=== PATIENT | female | born 2000 | race Caucasian/White ===

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

== ENCOUNTER 2021-07-05 10:34 | Emergency (ER) | payer OTHER, SELFPAY ==
[2021-07-05 10:48] VITALS: BP 121/67; PULSE 97; RESP 18; TEMP 37.2; O2SAT 99
--- NOTE | 2021-07-05 11:40 | ED.EAR ---
HPI - Ear Problem General Chief complaint: Ear Stated complaint: Bilateral Ear Pain Time Seen by Provider: 07/05/21 11:35 Source: patient and RN notes reviewed Mode of arrival: ambulatory Limitations: no limitations History of Present Illness HPI Narrative: 20-year-old female presents to [facility] with complaints of bilateral ear pain which actually woke her up last night with muffled hearing with Left > right. Patient does admit also to some sinus drainage and some sore throat with cough,denies any fevers chills or sweats or body aches. Patient has had flu vaccine but has not had any Covid vaccinations states she did take a home Covid test this morning which was negative. MD Complaint: ear pain and other (sinus drainage and sore throat) Location: bilateral Related Data Allergies Allergy/AdvReac Type Severity Reaction Status Date / Time No Known Allergies Allergy Verified 07/05/21 11:20 Review of Systems Review of Systems: CONSTITUTIONAL: Denies fever, chills, or sweats. EYES: Denies visual changes, redness, or discharge. ENT: Positive for rhinorrhea, congestion, sore throat, or otalgia. CARDIOVASCULAR: Denies chest pain, palpitations, or edema. RESPIRATORY:Positive for cough no dyspnea. GASTROINTESTINAL: Denies abdominal pain, nausea, vomiting, or diarrhea. GENITOURINARY: Denies dysuria or hematuria. SKIN: Denies rash or itching. MUSCULOSKELETAL: Denies back pain, joint pain, or myalgia. NEUROLOGIC: Denies headache, numbness, or weakness. PSYCHIATRIC: Denies anxiety or depression. All systems reviewed & are unremarkable except as noted in HPI and below PMFSH Past Medical History Medical History (Updated 07/08/21 @ 20:17 by Tessa Romano NP) Arm fracture Surgical History Surgical History (Updated 07/08/21 @ 20:11 by Tessa Romano NP) No history of previous surgery Family History Family History (Updated 07/08/21 @ 20:14 by Tessa Romano NP) Other Family history non-contributory Social History Social History (Updated 10/25/19 @ 19:18 by Bettye Chaidez MD) Smoking status: Never smoker Alcohol intake: never Substance use: unknown Comments At time of signature, agree with nursing past medical, surgical, social and family history. There is no relevant family history pertinent to the presenting complaint Exam Narrative: GENERAL: Well-appearing, well-nourished, and in no acute distress. HEAD: Normocephalic, atraumatic. EYES: PERRLA and EOMI. ENT: Nares red with clear rhinorrhea no epistaxis. Mucous membranes moist.TM's bilaterally red with bulging no drainage in ear canals, throat mild redness withno lesions or tonsil enlargement, some post nasal drainage noted. NECK: Supple.no lymphadenopathy CHEST: Clear to auscultation. No respiratory distress.SAO2 99% on room air. HEART: Regular rate and rhythm. No murmur heard. Normal peripheral pulses. ABDOMEN: Soft, nontender, nondistended, normal active bowel sounds. EXTREMITIES: Normal range of motion. No edema. SKIN: Warm, dry, no rash. NEURO: No focal deficits. Alert and oriented x3. Course Vital Signs Vital signs: Vital Signs Temperature 37.2 C 07/05/21 10:48 Pulse Rate 97 07/05/21 10:48 Respiratory Rate 18 07/05/21 10:48 Blood Pressure 121/67 07/05/21 10:48 Pulse Oximetry 99 07/05/21 10:48 Temperature 37.2 C 07/05/21 10:48 Pulse Rate 97 07/05/21 10:48 Respiratory Rate 18 07/05/21 10:48 Blood Pressure 121/67 07/05/21 10:48 Pulse Oximetry 99 07/05/21 10:48 Medical Decision Making Differential Diagnosis Differential Diagnosis: URI, otitis media sinusitis, viral syndrome, otalgia, Medical Records Medical records reviewed: Yes I reviewed the external patient's medical records. Vital Signs Vital Signs: Vital Signs Temperature 37.2 C 07/05/21 10:48 Pulse Rate 97 07/05/21 10:48 Respiratory Rate 18 07/05/21 10:48 Blood Pressure 121/67 07/05/21 10:48 Pulse Oximetry 99 07/05/21
== END 2021-07-05 12:08 | disposition home or self-care (01) ==
PROVIDERS: Emergency Provider Registered Nurse; PCP Family Medicine
DX: H65.03 Acute serous otitis media, bilateral (principal)
CPT/HCPCS: 99213; G0463

== ENCOUNTER 2022-09-03 20:38 | Emergency (ER) | payer OTHER, SELFPAY ==
--- NOTE | ~2022-09-03 | CT_ITS ---
CT Abdomen and Pelvis with contrast. History: Abdominal pain. Spiral CT of the abdomen and pelvis was performed after the administration of intravenous contrast. 1 00 cc of Omnipaque 350 was administered intravenously without complication. Dose reduction technique was used on this scan by utilizing automated exposure control and iterative reconstruction technique. The dose-length product (DLP) was 189.30 mGy-cm. Findings: Scans through the lung bases demonstrate mild atelectatic change. The liver, spleen, pancreas, gallbladder, adrenals and kidneys are within normal limits. No evidence of aortic aneurysm. No lymphadenopathy is seen. There is no evidence of bowel obstruction. There is no evidence to suggest acute appendicitis or dive rticulitis. Images through the pelvis were performed. Urinary bladder unremarkable. IUD in place. Suspected 5 cm complex left ovarian cyst. Pelvic free fluid is present. Impression: Probable 5 cm complex left ovarian cyst. Consider ultrasound for further evaluation. Diagnostic consi derations include hemorrhagic cyst, versus possibly tube ovarian abscess or endometrioma. Pelvic free fluid, nonspecific. Again, correlation for pelvic inflammatory disease versus ruptured cy st is advised. IUD in place. Reviewed, dictated and finalized at [facility]. [employer] Impression: Probable 5 cm complex left ovarian cyst. Consider ultrasound for further evalua tion. Diagnostic considerations include hemorrhagic cyst, versus possibly tube ovarian abscess or endometrioma. Pelvic free fluid, nonspecific. Again, correlation for pelvic inflammatory dise ase versus ruptured cyst is advised. IUD in place.
[2022-09-03 20:42] VITALS: BP 131/64; PULSE 95; RESP 15; TEMP 36.4; O2SAT 100
[2022-09-03 20:53] LABS: Basophils Absolute Auto 0.1 K/mm3 (0.0-0.1); Basophils Percent Auto 0.8 % (0.2-1.2); Eosinophils Absolute Auto 0.2 K/mm3 (0-0.3); Eosinophils Percent Auto 3.2 % (0-4.4); Hematocrit 35.1 % (37.0-47.0); Hemoglobin 11.4 g/dL (12.0-15.0); Immature Granulocyte Absolute 0.04 K/mm3 (0.00-0.031); Immature Granulocyte Percent A 0.6 % (0-0.5); Lymphocytes Absolute Auto 2.21 K/mm3 (0.9-3.2); Lymphocytes Percent Auto 35.4 % (18.3-44.2); Mean Corpuscular HGB Conc 32.5 g/dl (32-36); Mean Corpuscular Hemoglobin 30.6 pg (26-34); Mean Corpuscular Volume 94.4 fl (80-100); Mean Platelet Volume 9.2 fl (7.4-10.4); Monocytes Absolute Auto 0.5 K/mm3 (0.1-0.6); Monocytes Percent Auto 7.4 % (2.6-8.5); Neutrophils Absolute Auto 3.3 K/mm3 (1.3-6.7); Neutrophils Percent Auto 52.6 % (45.5-73.1); Platelet Count Result 199 k/mm3 (150-375); Red Blood Count 3.72 M/mm3 (4.2-5.4); Red Cell Distribution Width 12.2 % (11.5-14.5); White Blood Count 6.2 K/mm3 (4.5-10.0)
[2022-09-03 21:03] LABS: Alanine Aminotransferase 14 U/L (6-35); Albumin Level 4.5 g/dL (3.5-5.1); Alkaline Phosphatase 47 U/L (38-126); Anion Gap 5 mmol/L (8-16); Aspartate Amino Transferase 23 U/L (14-36); Bilirubin,Total 0.3 mg/dL (0.2-1.3); Blood Urea Nitrogen 15 mg/dL (7-17); Carbon Dioxide 27 mmol/L (22-30); Chloride 106 mmol/L (98-107); Estimated CRCL calculation 106 ml/min; Estimated Glomerular Filt Rate > 60; Glucose 97 mg/dL (65-110); Lipase 96 U/L (23-300); Potassium 4.4 mmol/L (3.4-5.0); Sodium 138 mmol/L (137-145)
--- NOTE | 2022-09-03 22:31 | ED.GENADULT ---
HPI - General Adult General Chief complaint: Abdominal Pain Stated complaint: abd pain Time Seen by Provider: 09/03/22 22:20 History of Present Illness HPI narrative: Patient is a 21-year-old female here for evaluation of sudden onset lower abdominal discomfort during intercourse today. Patient states that she was having intercourse with her boyfriend when suddenly she developed a stabbing pain in her suprapubic region. States that the pain was a 10 out of 10, lasted for several hours. She did take Tylenol which improved her pain. Currently pain-free. She is status post IUD insertion about a year ago. Denies any vaginal discharge or bleeding but does have some burning with urination. Related Data Allergies Allergy/AdvReac Type Severity Reaction Status Date / Time No Known Allergies Allergy Verified 09/03/22 23:18 Review of Systems Review of Systems: Gen.: Denies fevers or chills Eyes: Denies eye pain or visual change ENT: Denies congestion Respiratory: Denies shortness of breath or cough CV: Denies chest pain or palpitations GI: Reports lower abdominal pain denies burning, urgency, frequency or hematuria Musculoskeletal: Denies back pain or muscle pain Neuro: Denies numbness, tingling, weakness or focal weakness Skin: Denies rash Except as documented, all other systems reviewed and negative PMFSH Past Medical History Medical History Arm fracture Surgical History Surgical History No history of previous surgery Family History Family History (Updated 07/08/21 @ 20:14 by Tessa Romano NP) Other Family history non-contributory Social History Social History (Updated 10/25/19 @ 19:18 by Bettye Chaidez MD) Smoking status: Never smoker Alcohol intake: never Substance use: unknown Exam Narrative: APPEARANCE: Well appearing, no pain in distress, well-nourished. Head: Normocephalic and atraumatic. EYES: PERRLA/EOMI, conjunctivae clear NOSE: No nasal drainage EARS: External ear normal in appearance THROAT: Oropharynx is clear. Mucous membranes are moist. NECK: Supple. No adenopathy, no masses. RESPIRATORY: Airway patent, respirations nonlabored. Clear to auscultation bilaterally, no rales, rhonchi, wheezing. CARDIOVASCULAR: Regular rate and rhythm without murmurs, rubs, or gallops. ABDOMINAL: Tenderness to palpation in the suprapubic region. Normoactive bowel sounds. Soft, nondistended. No rebound tenderness or guarding. : Pain with speculum limits examination, cervix not completely visualized, scant amount of white vaginal discharge noted in vault MUSCULOSKELETAL: Extremities are warm and well-perfused. Moves all extremities well. No edema. NEURO: Normal speech. No focal neurologic deficits. SKIN: Skin is warm and dry. No rashes. PSYCHIATRIC: Normal affect/mood. Course Vital Signs Vital signs: Vital Signs Temperature 97.6 F 09/03/22 20:42 Pulse Rate 95 09/03/22 20:42 Respiratory Rate 15 09/03/22 20:42 Blood Pressure 131/64 09/03/22 20:42 Pulse Oximetry 100 09/03/22 20:42 Oxygen Delivery Room Air 09/03/22 20:42 Temperature 97.6 F 09/03/22 20:42 Pulse Rate 90 09/03/22 23:17 Respiratory Rate 14 09/03/22 23:17 Blood Pressure 106/74 09/03/22 23:17 Pulse Oximetry 97 09/03/22 23:17 Oxygen Delivery Room Air 09/03/22 20:42 Medical Decision Making MDM Narrative Medical decision making narrative: 21-year-old female here for evaluation of suprapubic abdominal pain after intercourse today. She is slightly uncomfortable in appearance but has normal vital signs, slight tenderness to palpation in the suprapubic region. Basic labs are unremarkable. Urine without evidence of infection. is negative. CT abdomen pelvis with possible hemorrhagic cyst which would certainly explain her pain. Her IUD is in the expected pos
[2022-09-03 22:46] VITALS: BP 117/61; PULSE 88; RESP 18; O2SAT 99
[2022-09-03 22:54] LABS: Appearance Urine Clear (Clear); Bilirubin Urine Negative (Negative); Blood Urine Trace-lysed (Negative); Color Urine Yellow (Yellow); Glucose Urine UA Negative (Negative); Ketones Urine Negative (Negative); Leukocyte Esterase Ur Negative LEU/UL (Negative); Nitrate Urine Negative (Negative); Protein Urine Negative (Negative); Specific Grav Ur >= 1.030 (1.001-1.035); Urobilinogen Urine 0.2 mg/dL (<2.0)
[2022-09-03 23:07] LABS: Bacteria Urine 1+ /hpf; Mucus Urine Rare /lpf; RBC Urine 0-2 /hpf (0-2); Squamous Epithelial Cell Urine Occasional /hpf (Few); WBC Urine 0-3 /hpf
[2022-09-03 23:08] LABS: Add Urine Microscopic? YES
[2022-09-03 23:17] VITALS: BP 106/74; PULSE 90; RESP 14; O2SAT 97
[2022-09-04] MEDS: KETOROLAC 15 MG/ML VIAL (*BKC) IV PUSH (00:14)
== END 2022-09-04 01:59 | disposition home or self-care (01) ==
PROVIDERS: Emergency Medicine; Emergency Provider Physician Assistant; PCP Family Medicine
DX: N83.202 Unspecified ovarian cyst, left side (principal); Z97.5 Presence of (intrauterine) contraceptive device
CPT/HCPCS: 36415; 74177; 80053; 81001; 81025; 83690; 85025; 96374; 99284; J1885; Q9967

== ENCOUNTER → 2022-10-11 10:42 | Outpatient (CLI) | payer OTHER, SELFPAY ==
--- NOTE | ~2022-10-11 | US_ITS ---
Pelvic ultrasound. Clinical History: Ovarian cyst Technique: Realtime transabdominal and transvaginal scanning of the pelvis was performed. Color flow Doppler and Doppler spectral analysis were performed. Findings: The uterus is anteverted. The endometrial stripe has a thickness of 5 mm. IUD in satisfact ory position. No focal mass is identified. The right ovary measures 2.9 x 1.7 x 2.5 cm. No significant right ovarian or adnexal mass is seen. The left ovary measures 3.1 x 2.3 x 3.6 cm. No significant left ovarian or adnexal mass is seen. Vascular flow present in both ovaries on Doppler spectral analysis. There is no evidence of free fluid in the cul de sac. Impression: IUD in satisfactory position. No significant adnexal mass seen. Reviewed, dictated and finalized at [facility]. Impression: IUD in satisfactory position. No significant adnexal mass seen.
== END ==
PROVIDERS: PCP Obstetrics & Gynecology Gynecology; Visit Provider Obstetrics & Gynecology Gynecology
DX: N83.202 Unspecified ovarian cyst, left side (principal); Z97.5 Presence of (intrauterine) contraceptive device
CPT/HCPCS: 76830

== ENCOUNTER 2025-03-25 12:17 | Outpatient (CLI) | payer OTHER, SELFPAY ==
--- NOTE | ~2025-03-25 | US_ITS ---
EXAMINATION: US pelvic complete, 03/25/2025 12:19 CDT HISTORY: Pelvic pain Comparison: None Technique: Dunham-scale and color Doppler images were obtained. Findings: Uterus: Uterus 7.5 x 3 x 4 cm, IUD in appropriate location. . Endometrium 3 mm. Right Ovary:Right ovary 1.8 x 1.6 x 1.4 cm, no adnexal mass, normal flow. Left Ovary: Left ovary 1.6 x 2 x 1.8 cm, no adnexal mass, normal flow. Free Fluid: None Impression: 1. No etiology to explain the patient's pain Reviewed, dictated and finalized at location [facility]. Impression: 1. No etiology to explain the patient's pain
== END 2025-03-25 12:18 | disposition home or self-care (01) ==
LOC: MICIMG 12:18
PROVIDERS: PCP Obstetrics & Gynecology Gynecology; Visit Provider Obstetrics & Gynecology Gynecology
DX: R10.2 Pelvic and perineal pain (principal)
CPT/HCPCS: 76856